=== PATIENT | male | born 1965 | race Caucasian/White ===

== ENCOUNTER → 2021-11-02 10:57 | Outpatient (CLI) | payer OTHER, SELFPAY ==
--- NOTE | ~2021-11-02 | XR_ITS ---
XR lumbar spine 2-3V DATE: 11/02/2021 11:15 INDICATION: Bilateral lower leg pain TECHNIQUE: AP, lateral and coned lateral lumbosacral views COMPARISON: 09/02/2016 lumbar spine FINDINGS: There is mild levoscoliosis of the thoracolumbar spine. Mild degenerative disc disease and spurring at L3-4. Moderate to moderately severe degenerative disc disease at L4-5 and severe degenerative disease at L5-S1. No fracture or bone destruction or spondylolisthesis. The lumbar pedicles are intact. The sacroiliac joints are intact. IMPRESSION: Multilevel degenerative disc disease, most pronounced at L5-S1 Reviewed, dictated and finalized at location B.
== END ==
PROVIDERS: PCP Family Medicine; Visit Provider Family Medicine
DX: M47.817 Spondylosis without myelopathy or radiculopathy, lumbosacral region (principal); M79.661 Pain in right lower leg; M41.9 Scoliosis, unspecified; M79.662 Pain in left lower leg
CPT/HCPCS: 72100

== ENCOUNTER 2021-12-01 01:19 | Day surgery (SDC) | payer OTHER, SELFPAY ==
[2021-11-17 15:21] VITALS: BMI 33.5
[2021-12-01 08:13] VITALS: BP 141/86; PULSE 70; RESP 18; TEMP 36.5; O2SAT 98
[2021-12-01] MEDS: LACTATED RINGERS 1,000 ML 150 ML IV CONT (08:27)
[2021-12-01] MEDS: AMPICILLIN 2 GM/NS 100 ML 2 GM/100 ML BAG IVPB (08:28)
[2021-12-01] MEDS: GENTAMICIN 80MG/SOD CHL 50 ML 80 MG/50 ML BAG 100 MG IVPB (08:58)
--- NOTE | 2021-12-01 09:08 | P.PNAN_ITS ---
Anes - Initial Pre Proc Eval Procedure: Operation Date: 12/01/21 09:00 Proposed Procedures p Screening Colonoscopy - Kevin Salguero MD Date/Time: 12/01/21 09:08 Surgeon: Kevin Salguero MD Pre Op Diagnosis: neoplasm screening Patient Data Age: 55 Gender: M Height: 1.8 m Weight: 111.6 kg Last Vital Signs Temp 97.7 F 12/01/21 08:13 Pulse 70 12/01/21 08:13 Resp 18 12/01/21 08:13 BP 141/86 H 12/01/21 08:13 Pulse Ox 98 12/01/21 08:13 O2 Del Method Room Air 12/01/21 08:13 Allergies Allergy/AdvReac Type Severity Reaction Status Date / Time No Known Allergies Allergy Verified 12/01/21 08:12 Home Medications Medication Instructions Recorded Confirmed Type zolpidem 10 mg tablet 10 mg PO HS PRN Insomnia 11/17/21 11/17/21 History Patient hx anesthesia problems: none Family hx anesthesia problems: none Results Review: All pre-operative results and documents have been reviewed as part of the pre-operative evaluation. [facility] Social History Social History Smoking status: Never smoker Alcohol intake: current Drinks per week: 5 Substance use: never Substance use type: does not use Living arrangements: with family Spiritual care concerns: No Anes - Eval Final PreProcedure Day of Procedure 12/01/21 09:08 Patient weight: obese Heart: regular rate and rhythm Lungs: clear to auscultation Airway: Mallampati scale class II Neurological: alert and oriented Last oral intake: >/= 8 hours ASA classification: II Emergent: no Anesthetic plan: proceed Anesthesia type and monitoring: general GIVS and standard monitoring Results Review: All pre-operative results and documents have been reviewed as part of the pre- operative evaluation. Informed Consent: The patient's anesthetic plan and its attendant risks and benefits were discussed with the patient/family/POA. Questions were solicited and answers provided to the satisfaction of the patient/family/POA.
--- NOTE | 2021-12-01 09:13 | PM.IMHP ---
H&P: HPI History of Present Illness Date/Time: 12/01/21 09:13 Chief Complaint: History of colon polyps. Narrative: This is a 55-year-old white male patient presents for screening colonoscopy. Patient has a history of adenomatous colon polyp removed from the colon 2016. Patient's current weight appetite bowel movements are normal. He denies abdominal pain. Patient has had no bleeding. Family history noncontributory. PMFSH Social History Social History Smoking status: Never smoker Alcohol intake: current Drinks per week: 5 Substance use: never Substance use type: does not use Living arrangements: with family Spiritual care concerns: No Meds Home Medications and Allergies Home Medications Medication Instructions Recorded Confirmed Type zolpidem 10 mg tablet 10 mg PO HS PRN Insomnia 11/17/21 11/17/21 History Allergies Allergy/AdvReac Type Severity Reaction Status Date / Time No Known Allergies Allergy Verified 12/01/21 08:12 Vital Signs Vital Signs - 24 hr 12/01/21 08:13 Temperature 97.7 F Pulse Rate 70 Respiratory Rate 18 Blood Pressure 141/86 H Pulse Oximetry 98 Oxygen Delivery Room Air Exam Narrative: Physical exam reveals patient to be alert. Vital signs stable. HEENT exam is unremarkable. Patient is anicteric. Lungs are clear to auscultation and percussion. Heart is without murmur or extra sounds. Abdomen bowel sounds are present soft nontender with no organomegaly. Digital external rectal exam is normal. Assessment and Plan Assessment and plan (1) History of colon polyps: Code(s): Z86.010 - Personal history of colonic polyps Status: Acute Assessment and Plan: Patient has a history of colon polyps. Plan is for surveillance colonoscopy now and at 5 year intervals in the future.
[2021-12-01 09:38] VITALS: BP 126/81; PULSE 62; RESP 24; O2SAT 99
[2021-12-01 09:48] VITALS: BP 119/74; PULSE 53; RESP 16; O2SAT 99
[2021-12-01 09:58] VITALS: BP 136/85; PULSE 50; RESP 17; O2SAT 99
== END 2021-12-01 10:16 | disposition home or self-care (01) ==
PROVIDERS: PCP Family Medicine; Visit Provider Internal Medicine Gastroenterology
PROC: 0DJD8ZZ Inspection of Lower Intestinal Tract, Via Natural or Artificial Opening Endoscopic (ICD-10-PCS; CPT 45378; principal; 2021-12-01 09:00)
DX: Z12.11 Encounter for screening for malignant neoplasm of colon (principal); Z86.010 Personal history of colon polyps; K64.8 Other hemorrhoids; E66.9 Obesity, unspecified; Z68.34 Body mass index [BMI] 34.0-34.9, adult
CPT/HCPCS: 45378; J0290; J1580; J2704; J7120

== ENCOUNTER → 2021-12-11 16:14 | Outpatient (CLI) | payer OTHER, SELFPAY ==
--- NOTE | ~2021-12-11 | MR_ITS ---
EXAMINATION: MR lumbar spine wo con DATE: 12/11/2021 16:40 INDICATION: Other intervertebral disc degeneration, lumbar spine. Low back pain. Bilateral leg pain. TECHNIQUE: Magnetic resonance imaging (MRI) of the lumbar spine was performed without intravenous con trast. Sequences included sagittal T2-weighted FSE, sagittal T2-weighted FS FSE, sagittal T1-weighted FSE, and axial T2-weighted FSE. COMPARISON: Lumbar spine MRI 02/27/2016 FINDINGS: There is 5 degrees levocurvature of lumbar spine. There are Schmorl's nodes at most levels. There is mildly decreased disc height at L2-L3, moderately decreased disc height at L3-L4, and sever ludwin decreased disc height at L4-L5 and L5-S1. The distal spinal cord signal intensity is normal. The conus medullaris is at L1. The following disc levels are specifically discussed: L1-L2: The disc does not extend beyond the endplate margin. There is mild bilateral facet joint osteo arthritis. There is no neural foraminal stenosis. There is no central canal stenosis. L2-L3: The disc is mildly bulging. There is mild bilateral facet joint osteoarthritis. There is mild bilateral neural foraminal stenosis. There is no central canal stenosis. L3-L4: The disc is bulging and has an annular fissure. There is mild bilateral facet joint osteoarthr itis. There is mild bilateral neural foraminal stenosis. There is mild central canal stenosis. L4-L5: The disc is bulging and has an annular fissure. There is severe bilateral facet joint osteoart hritis. There is moderate bilateral neural foraminal stenosis. There is moderate central canal stenos is. L5-S1: The disc is bulging and has an annular fissure. There is severe bilateral facet joint osteoart hritis. There is mild bilateral neural foraminal stenosis. There is mild central canal stenosis. IMPRESSION: 1. Severe lumbar spondylosis, worsened from 02/27/2016. Reviewed, dictated and finalized at location A.
== END ==
PROVIDERS: PCP Family Medicine; Visit Provider Family Medicine
DX: M51.36 Other intervertebral disc degeneration, lumbar region (principal); M47.816 Spondylosis without myelopathy or radiculopathy, lumbar region
CPT/HCPCS: 72148

== ENCOUNTER 2022-09-26 15:30 | Outpatient (RCR) | payer OTHER, SELFPAY ==
--- NOTE | 2022-08-29 16:07 | PTOPEVAL1 ---
Assessment and note entered by Vic Weston, PT Evaluation Information Diagnosis lumbar pain Onset chronic Subjective Information Patient reports issues with his back, although feeling better after injection about 3 weeks ago. He has had a previous back surgery 8-9 years ago. Patient reports pain is not his main worry, but decreased sensation and strength down both his legs. Patient also has bad knees having the R knee replaced last year and planning on the L knee sometime soon. Patient reports he stretches and does exercises in the pool when he has a chance. Patient is coming to therapy to hopefully delaye getting another surgery. Reported Pain Level Pain Score 4: Self Report Assessment PT Clinical Summary Augie is a 56 year old male coming in with a diagnosis L4-L5 stenosis. Patient has reported weakness and decreased sensation in his lower extremities. The patient has weakness in his hip extension and core along with tightness in his hip flexors. Modalities and manual therapy as needed for pain control. Plan of Care Interventions Electrical Stimulation,Gait Training,Hot Pack/Cold Pack,Manual Therapy,Neuro Re-education,Patient/ Caregiver Education,Therapeutic Activities, Therapeutic Exercise,Ultrasound Other Interventions taping, cupping, and IASTM PT Services Indicated Yes Treatment Frequency and 1-2x/wk for 4 weeks Duration These treatments will address the objective and functional deficits as defined above. The patient will be advanced safely and appropriately in order for the patient to progress towards his/her prior level of function. Additional exercises will be introduced and as well as a comprehensive home exercise program upon discharge, if needed, ?to ensure carryover of functional gains achieved in the clinic. This treatment plan has been reviewed and agreement upon by the patient.
--- NOTE | 2022-08-29 16:08 | OPREHPOC ---
Outpatient Therapy Plan of Care This is a Multidisciplinary Plan of Care that may contain components documented by all disciplines (PT, OT, and ST.) PT Problem 1 PT Problem #1 Knowledge Deficit PT Goal 1 Goal Independent with HEP Target Visit 4 PT Problem 2 PT Problem #2 Impaired Strength PT Goal 1 Goal RITA hip extension to 5/5 Target Visit 4 PT Problem 3 PT Problem #3 Impaired Range of Motion PT Goal 1 Goal RITA lumbar rotation to 30 degrees lumbar extension to 25 degrees. Target Visit 4 PT Problem 4 PT Problem #4 Impaired Sensation PT Goal 1 Goal centralization of symptoms Target Visit 4 PT Problem 5 PT Problem #5 Pain PT Goal 1 Goal decrease pain to no more than 4/10 at its worst. Target Visit 4
--- NOTE | 2022-09-26 15:54 | PTOPDC ---
Assessment and note entered by Vic Weston, PT Evaluation Information Assessment Status Discharge Diagnosis Lumbar pain Onset chronic Subjective Information Patient reports he has not noticed much difference in symptoms. He reports he is usually sore after leaving therapy and the next day, but the day after that does feel maybe a little bit better. Patient has an upcoming appointment with his doctor in September. Patient Reports he is doing his stretches at home and taking advantage of the pool at [place]. Reported Pain Level Pain Score 0: Self Report Assessment PT Clinical Summary Augie is a 56 year old male coming into the clinic with a diagnosis of lumbar pain although he reports it is more weakness and sensation issues than pain. Patient was evaluated on 08/29/22 and has attended 5 sessions. The patient has met his range of motion and strength goals, but not centralization goal. Patient appears safe with HEP and recommend discharge from physical therapy and continue to do his aquatic therapy and HEP. Plan of Care PT Services Indicated No
== END 2022-09-28 13:36 | disposition home or self-care (01) ==
LOC: ANHPT 15:30
PROVIDERS: PCP Family Medicine; Visit Provider Neurological Surgery
DX: M48.061 Spinal stenosis, lumbar region without neurogenic claudication (principal)
CPT/HCPCS: 97110; 97140; 97161

== ENCOUNTER → 2022-11-26 13:44 | Outpatient (CLI) | payer OTHER, SELFPAY ==
--- NOTE | ~2022-11-26 | XR_ITS ---
EXAMINATION: XR lumbar spine min 4V DATE: 11/26/2022 14:05 INDICATION: Spinal stenosis, lumbar region without neurogenic claudication. TECHNIQUE: 5 views of the lumbar spine including standing views and flexion and extension views were obtained. COMPARISON: Lumbar spine radiographs 11/02/2021, MRI 12/11/2021 FINDINGS: Bone alignment is normal. The spine is hypomobile with flexion and extension. There are Saritha morl's nodes at many levels. There is mildly decreased disc height at L1-L2, L2-L3, and L3-L4 and sev erely decreased disc height at L4-L5 and L5-S1. There is multilevel facet joint osteoarthritis, sever e in lower lumbar spine. IMPRESSION: 1. Severe lumbar spondylosis. Reviewed, dictated and finalized at location E.
== END ==
PROVIDERS: PCP Neurological Surgery; Visit Provider Neurological Surgery
DX: M48.061 Spinal stenosis, lumbar region without neurogenic claudication (principal); M47.896 Other spondylosis, lumbar region
CPT/HCPCS: 72110

== ENCOUNTER 2024-05-01 14:47 | Outpatient (CLI) | payer OTHER, SELFPAY ==
--- NOTE | ~2024-05-01 | MR_ITS ---
EXAMINATION: MR brain/brain stem wo/w con DATE: 05/01/2024 15:44 INDICATION: Other specified abnormal findings of blood chemistry. TECHNIQUE: Magnetic resonance imaging (MRI) of the brain and brainstem was performed without and with 20 mL MultiHance intravenous contrast. COMPARISON: None. FINDINGS: There is no intracranial hemorrhage, acute infarction, or abnormal intracranial mass lesion . The pituitary is normal in size with height of 4 mm. The ventricles are normal. The orbits are norm al. The paranasal sinuses are clear. The mastoid air cells are normal. IMPRESSION: 1. Normal brain. Reviewed, dictated and finalized at location A. O CHECKER IMPRESSION: 1. Normal brain.
--- OUTSIDE RECORDS SUMMARY | 2024-05-01 14:51 | XMS_ITS | Encounter Summary ---
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 Historical Provider Final Res ult documented in this encounter Visit Diagnoses Not on filedocumented in this encounter Care Teams Agency Development Manager Relationship Specialty Start Date End Date Anjum Daly MD [address] [place] [address] PCP - General Family Medicine 06/23/18 02/07/22 Michelle Duggan MD [address] [address] PCP - General Family Medicine 02/08/22 documented as of this encounter
--- OUTSIDE RECORDS SUMMARY | 2024-05-01 14:51 | XMS_ITS | Encounter Summary ---
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 Historical Provider Final Res ult * PROCEDURE - RESULT (05/09/2016 12:00 AM CUTTING TABLE OPERATOR FIRST) Narrative 05/09/2016 12:00 AM CUTTING TABLE OPERATOR FIRST Ordered by an unspecified provider. Historical Provider Final Res ult documented in this encounter Visit Diagnoses Not on filedocumented in this encounter Care Teams Tool And Die Repairer Relationship Specialty Start Date End Date Anjum Daly MD [address] [place] [address] PCP - General Family Medicine 06/23/18 02/07/22 Michelle Duggan MD [address] [place] [address] [address] PCP - General Family Medicine 02/08/22 documented as of this encounter
--- OUTSIDE RECORDS SUMMARY | 2024-05-01 14:51 | XMS_ITS | Encounter Summary ---
Author Organization [facility] Facility Care Team Providers Care Senior Security Engineer Name Role Phone Anjum Daly MD Primary Care Provider [phone] Michelle Duggan MD Primary Care Provider + Encounter Details Date Type Department Care Team (Latest Contact Info) Description 06/05/2016 Orders Only [facility] CLINCONV ProviderDelaney MD [address] [place] [address] Social History Tobacco Use Types Packs/Day Years Used Date Smoking Tobacco: Never Sex and Gender Information Value Date Recorded Sex Assigned at Not on file Legal Sex Male 4:44 AM DISPATCH SUPERVISOR Gender Identity Not on file Sexual Orientation Not on file documented as of this encounter Plan of Treatment Not on file documented as of this encounter Procedures Procedure Name Priority Date/Time Associated Diagnosis Comments PROCEDURE - RESULT 06/05/2016 12 :00 AM DISPATCH SUPERVISOR PROCEDURE - RESULT 06/05/2016 12 :00 AM DISPATCH SUPERVISOR documented in this encounter Results * PROCEDURE - RESULT (06/05/2016 12:00 AM DISPATCH SUPERVISOR) Narrative 06/05/2016 12:00 AM DISPATCH SUPERVISOR Ordered by an unspecified provider. Historical Provider Final Res ult * PROCEDURE - RESULT (06/05/2016 12:00 AM DISPATCH SUPERVISOR) Narrative 06/05/2016 12:00 AM DISPATCH SUPERVISOR Ordered by an unspecified provider. Historical Provider Final Res ult documented in this encounter Visit Diagnoses Not on filedocumented in this encounter Care Teams Senior Security Engineer Relationship Specialty Start Date End Date Anjum Daly MD [address] [place] [address] PCP - General Family Medicine 06/23/18 02/07/22 Michelle Duggan MD [address] [place] [address] [address] PCP - General Family Medicine 02/08/22 documented as of this encounter
--- OUTSIDE RECORDS SUMMARY | 2024-05-01 14:51 | XMS_ITS | Encounter Summary ---
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 us Historical Provider Final Res ult documented in this encounter Visit Diagnoses Not on filedocumented in this encounter Care Teams Assistant Store Leader Relationship Specialty Start Date End Date Anjum Daly MD [address] [place] [address] PCP - General Family Medicine 06/23/18 02/07/22 Michelle Duggan MD [address] [address] PCP - General Family Medicine 02/08/22 documented as of this encounter
--- OUTSIDE RECORDS SUMMARY | 2024-05-01 14:51 | XMS_ITS | Referral Summary ---
Author Organization [facility] Address [address] [place] [address] Care Team Providers Care Dictating Machine Transcriber Name Role Phone Michelle Duggan MD Primary Care Provider + Allergies No known active allergies Medications zolpidem (AMBIEN) 10 mg tablet 10 mg nightly as needed 1 10/13/2018 Active fluorouraciL (EFUDEX) 5 % cream 05/09/[address] (VOLTAREN) 75 mg EC tablet Take 75 mg by mouth 2 (two) times a day Active Active Problems Problem Noted Date Diagnosed Date Sleep apnea 07/15/2019 Insomnia 02/12/2019 Osteoarthritis 02/12/2019 Chronic pain of right knee 08/15/2018 Pain of meniscus of right knee 07/14/2018 Other intervertebral disc displacement, lumbar r egion 04/09/2016 Pain of foot 12/12/2012 Immunizations Name Administration Dates Next Due Influenza, Quadrivalent, Spl it, Preservative Free, Intramuscular 01/23/2018,01/22/2018 Tdap 07/09/2017 Social History Tobacco Use Types Packs/Day Years Used Date Smoking Tobacco: Never Smokeless Tobacco: Never Tobacco Cessation:Counseling Given: Not Answered Alcohol Use Standard Drinks/Week Comments Yes 0 (1 standard drink = 0.6 oz pur e alcohol) AUDIT-C Answer Date Recorded Q1: How often do you have a drink containing alc ohol? 2-3 times a week 06/18/2022 Q2: How many drinks containi ng alcohol do you have on a typical day when you are drinking? 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 Gender Identity Not on file Sexual Orientation Not on file Last Filed Vital Signs Vital Sign Reading Time Taken Comments Blood Pressure 147/84 06/18/2022 1:11 PM CDT Pulse 94 06/18/2022 1:11 PM CDT Temperature 36.9 ??C (98.4 ??F) 06/18/2022 1:11 PM CD T Respiratory Rate 16 06/18/2022 1:11 PM CDT Oxygen Saturation 95% 06/18/2022 1:11 PM CDT Inhaled Oxygen Concentration - - Weight 106.6 kg (235 lb) 06/18/2022 1:11 PM CDT Height 180.3 cm (5' 11 ) 06/18/2022 1:11 PM CDT Body Mass Index 32.78 06/18/2022 1:11 PM CDT Plan of Treatment Not on file Goals Goal Patient Goal Type Associated Problems Recent Progress Patient-Stated? Author CCM Chronic Pain Care Plan Chronic Care Management No change(06/18 1:13 PM CDT) No Sophie Chairez, REZA Note: Problem: Chronic Pain Goals: 1. Minimize further functional decline 2. Maximize quality of life 3. Control pain Strategies: - Activity/exercise program recommendation - Conservative stepwise pain medicine strategy with multi-disciplinary approach - Recommend healthy lifestyle strategies and compensatory methods as needed Medical Devices Implanted Type Area Transit Mixer Driver Device Identifier Shelf Expiration Date Model / Serial / Lot Knee Replacement Knee Insurance [facility] PL[facility] PL[facility] Care Teams Dictating Machine Transcriber Relationship Specialty Start Date End Date Kalaher, Michelle Christin, MD [address] [address] PCP - General Family Medicine 02/08/22
--- OUTSIDE RECORDS SUMMARY | 2024-05-01 14:51 | XMS_ITS | Clinical Summary ---
Author Organization [facility] Address [address] [place] [address] Care Team Providers Care Manager Support Name Role Phone Michelle Duggan MD Primary [...] it, Preservative Free, Intramuscular 01/23/2018,01/22/2018 Tdap 07/09/2017 Surgical History Surgery Date Site/Laterality Comments BACK SURGERY KNEE ARTHROSCOPY 03/21/2018 Left MMD REPLACEMENT TOTAL KNEE 04/01/2021 - 03/31/2022 Right Medical History Medical History Date Comments Sleep apnea Back pain Arthritis Low back pain Joint pain Family History Medical History Relation Name Comments Hypertension Father Relation Name Status Comments Father Social History Tobacco Use Types Packs/Day Years [...] on file 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 Gender Identity Not on file Sexual Orientation Not on file Obstetrics History Last Filed Vital Signs Vital Sign Reading [...] 06/18/2022 1:11 PM CDT Plan of Treatment Health Maintenance Due Date Last Done Comments Colon Cancer Screening-Colonoscopy 1965 Depression Screening 1965 Hepatitis C Screening 1965 Prostate Cancer Screening-PSA 1965 Hepatitis B Screening 12/14/1983 Regular Well Visit/Exam 18-64 12/14/1983 Zoster Vaccine (1 of 2) 12/14/2015 Covid-19 Vaccine ( season) 2023 03/07/2021, 07/21/2020, 06/30/2020, Additional history exists Influenza Vaccine (#1) 2023 01/23/2018, 2017 DTaP/Tdap/Td Vaccine (2 - Td or Tdap) 07/10/2027 07/09/2017 Pneumococcal vaccine <65 Aged Out No longer eligible based on patient's age to complete this topic Goals Goal Patient Goal Type Associated Problems Recent Progress Patient-Stated? Author CCM Chronic Pain Care Plan Chronic Care Management No change(06/18 1:13 PM CDT) Sophie Mayes RN Note: Problem: Chronic Pain Goals: 1. Minimize further functional decline 2. Maximize quality of life 3. Control pain Strategies: - Activity/exercise program recommendation - Conservative stepwise pain medicine strategy with multi-disciplinary approach - Recommend healthy lifestyle strategies and compensatory methods as needed Medical Devices Implanted Type Area Insurance Verification Clerk Device Identifier Shelf Expiration Date Model / Serial / Lot Knee Replacement Knee Insurance [facility] CHO[facility] PLUS [facility]PPO Address: [address] [address] [place] [address] [facility] CHOICE PLUS [facility]/PPO Address: [address] [place], [place] [id number] Care Teams Manager Support Relationship Specialty Start Date End Date Michelle Duggan MD [address] [place] [address] [place] [address] PCP - General Family Medicine 02/08/22
--- OUTSIDE RECORDS SUMMARY | 2024-05-01 14:51 | XMS_ITS | Encounter Summary ---
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 Historical Provider Final Res ult * PROCEDURE - RESULT (03/20/2018 12:00 AM PHARMACY CLERK) Narrative 03/20/2018 12:00 AM PHARMACY CLERK Ordered by an unspecified provider. Historical Provider Final Res ult documented in this encounter Visit Diagnoses Not on filedocumented in this encounter Care Teams Medical Representative Relationship Specialty Start Date End Date Anjum Daly MD [address] [place] [id number] PCP - General Family Medicine 06/23/18 02/07/22 Michelle Duggan MD [address] [place] [address] [id number] PCP - General Family Medicine 02/08/22 documented as of this encounter
== END 2024-05-01 14:48 | disposition home or self-care (01) ==
PROVIDERS: PCP Family Medicine; Visit Provider Nurse Practitioner Family
DX: R79.89 Other specified abnormal findings of blood chemistry (principal)
CPT/HCPCS: 70553; A9577